=== PATIENT | male | born 2000 | race Two or more races ===

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

== ENCOUNTER 2022-12-12 09:27 | Emergency (ER) | payer OTHER ==
[~2022-12-12] VITALS: Ht 154.9 cm; Wt 51.6 kg
[2022-12-12 10:05] LABS: Basophils # (auto) 0 10 ^3/uL (0-0.2); Eosinophils # (auto) 0 10 ^3/uL (0-0.8); Eosinophils % (auto) 0.2 % (0.0-7.0); Mean Corpuscular Hgb Conc. 34.9 g/dL (32.0-36.0); Monocytes # (auto) 1.4 10 ^3/uL (0-1.3); Neutrophils # (auto) 13.4 10 ^3/uL (1.6-8.6)
[2022-12-12 10:07] LABS: Basophils % (auto) 0.3 % (0.0-2.0); Hemoglobin 17.1 g/dL (13.5-17.5); Lymphocytes # (auto) 1.3 10 ^3/uL (0.4-5.4); Lymphocytes % (auto) 7.9 % (10.0-50.0); Mean Corpuscular Volume 80.1 fL (80.0-100.0); Monocytes % (auto) 8.6 % (0.0-12.0); Nucleated Red Blood Cells % 0.3 %; Red Blood Cells 6.11 10^6/uL (4.5-5.90); Red Cell Distribution Width 14.3 % (11.8-14.3); White Blood Cell 16.1 10^3/uL (4.4-10.8)
[2022-12-12 10:20] LABS: Alanine Aminotransferase 20 U/L (7-40); Albumin 5.8 g/dL (3.2-4.8); Alkaline Phosphatase 118 U/L (46-116); Anion Gap 10 (5-15); Aspartate Aminotransferase 23 U/L (13-40); BUN/Creatinine Ratio 25.2 (10.0-20.0); Bilirubin, Total 1.4 mg/dL (0.2-1.0); Blood Urea Nitrogen 28 mg/dL (9-23); Calcium 9.9 mg/dL (8.7-10.4); Carbon Dioxide 34 mmol/L (20-30); Chloride 90 mmol/L (98-107); Glucose 127 mg/dL (74-106); Potassium 3.1 mmol/L (3.5-5.1); Sodium 134 mmol/L (136-145); Total Protein 9.5 g/dL (5.7-8.2)
[2022-12-12 11:30] LABS: Urine Bacteria NONE SEEN /hpf (None Seen); Urine Blood 1+ /uL (Negative); Urine Clarity HAZY (Clear); Urine Color Yellow (Yellow); Urine Mucus FEW (None Seen); Urine Protein, UAD 2+ (Negative); Urine Specific Gravity 1.025 (1.001-1.035); Urine Urobilinogen Normal (Negative); Urine WBC 471 /hpf (0 - 3)
[2022-12-12] MEDS ORDERED: ONDANSETRON ODT 4 MG TAB PO ONE (12:15)
[2022-12-12 12:26] LABS: Magnesium 2.5 mg/dL (1.6-2.6)
[2022-12-12] MEDS ORDERED: SODIUM CHLORIDE 0.9% 1,000 ML IV ONE (12:30)
[2022-12-12] MEDS ORDERED: DICYCLOMINE HCL (10MG/ML) 2 ML AMPULE IM ONE (12:30)
[2022-12-12 12:54] LABS: Amphetamine Screen, Urine Neg (NEGATIVE); Barbiturate Scree,Urine Neg (NEGATIVE); Benzodiazephine Screen, Urine Neg (NEGATIVE)
[2022-12-12 12:55] LABS: Cannabinoid Screen, Urine Pos (NEGATIVE); Cocaine Screen, Urine Pos (NEGATIVE); Opiate Scree,Urine Neg (NEGATIVE); Phencyclidine Screen, Urine Neg (NEGATIVE)
[2022-12-12 13:11] VITALS: BP 105/77; PULSE 101; RESP 19; TEMP 97.8; O2SAT 98
[2022-12-12] MEDS ORDERED: POTASSIUM CHL 20MEQ/100ML 100 ML IV ONE (13:15)
[2022-12-12] MEDS ORDERED: POTASSIUM EFFERVESENT TAB 25 MEQ PO ONE (14:00)
[2022-12-12] MEDS ORDERED: POTA-220 PO (15:00)
[2022-12-12] MEDS ORDERED: DICY10CA PO (15:02)
[2022-12-12] MEDS ORDERED: ZOFR4T PO (15:02)
[2022-12-13 11:14] LABS: Free T4 (Free Thyroxine) 1.26 ng/dL (0.89-1.76)
[2022-12-16 12:20] LABS: Free T3 2.84 pg/mL (2.3-4.2)
== END 2022-12-12 15:18 | disposition home or self-care (01) ==
LOC: ER 09:27
DX: R10.84 Generalized abdominal pain (principal); D72.829 Elevated white blood cell count, unspecified; R11.2 Nausea with vomiting, unspecified; R19.7 Diarrhea, unspecified; E87.6 Hypokalemia; E86.0 Dehydration; J45.909 Unspecified asthma, uncomplicated; F14.10 Cocaine abuse, uncomplicated; F11.10 Opioid abuse, uncomplicated; F12.90 Cannabis use, unspecified, uncomplicated
CPT/HCPCS: 36415; 74176; 80053; 80307; 81001; 83690; 83735; 84439; 84443; 84481; 85025; 96360; 96372; 99285; J0500; J7030; Q0162